=== PATIENT | male | born 1970 | race African-American/Black ===

== ENCOUNTER 2018-05-24 11:20 | Observation (INO) ==
[2018-05-24] MEDS ORDERED: *HR* FentaNYL (PF) 100 MCG/2 ML VIAL IVP ONE ×2 (11:38→13:07)
[2018-05-24] MEDS ORDERED: Ondansetron 4 MG/2 ML VIAL IVP ONE (11:38)
--- NOTE | 2018-05-24 11:41 | Emergency Department Note ---
START Narrative - START START: I examined this patient and my medical decision-making was reviewed with the Resident Physician. I agree with the documented findings, disposition and treatment plan as described except to the extent set forth below. 47-year-old male since emergency room for right-sided abdominal pain and right flank pain that started this morning. We did a quick bedside aortic ultrasound which does not show any enlargement or any abnormalities involving the aorta generally speaking. His right kidney at the either has probably cystic presentation versus severe hydronephrosis. He is acting like a kidney stone. We will check labs urinalysis and a CT abdomen and pelvis.
--- NOTE | 2018-05-24 11:44 | Emergency Department Note ---
Disposition Clinical Impression: Calculus of kidney Disposition: Admitted As Inpatient Condition: Good Forms: ED Satisfaction Letter, Work/School Release Time of Disposition: 14:08 General Adult HPI - General Chief complaint: ED Abdominal Pain Stated complaint: R flank pain Time Seen by Provider: 05/24/18 11:30 Nursing Notes Reviewed: Yes Vital Signs Reviewed: Yes - History of Present Illness HPI Narrative: Male patient began having right-sided abdominal/flank pain this morning. No history of kidney stones. Sudden onset. Intense pain to the right side. No nausea or vomiting. No fevers or chills. Radiates from his back around to his abdomen. Pain Scale: 10 - Related Data Home Medications Medication Instructions Recorded Confirmed No Known Home Drugs 05/24/18 05/24/18 Allergies Allergy/AdvReac Type Severity Reaction Status Date / Time No Known Allergies Allergy Verified 05/24/18 13:31 All systems ED: reviewed and negative except as stated. Constitutional: Denies: fever, chills ENT ED: Denies: congestion Cardiovascular: Denies: chest pain, palpitations, syncope Respiratory: Denies: cough, dyspnea Gastrointestinal: Reports: abdominal pain. Denies: nausea, vomiting, diarrhea, hematemesis, melena, hematochezia Genitourinary: Denies: urgency, dysuria, frequency, hematuria Musculoskeletal: Reports: back pain (Right-sided). Denies: neck pain Past Medical History - Past Medical History Attestation: Yes The following information was validated with the patient. Source: patient Medical history: Reports: no medical history Surgical history: Reports: no surgical history Psychiatric history: Reports: no psych history - Social History Smoking Status: Never smoker Smokeless Tobacco Status: No Alcohol use: Reports: none Drug use: Reports: none Physical Exam - General Limitations: no limitations General appearance: alert, in distress (Comparison significant pain. Writhing around. Frequently standing up trying to get comfortable.) - Eye Eye exam: Present: normal appearance, PERRL, EOMI - ENT ENT exam: normal exam, normal oropharynx, mucous membranes moist - Neck Neck exam: Present: normal inspection, full ROM, trachea midline - Chest Chest inspection: Present: normal inspection - Respiratory Respiratory exam: Absent: respiratory distress, accessory muscle use - Cardiovascular Cardiovascular exam: Present: regular rate, normal rhythm - Abdominal Exam Abdominal exam: Present: soft, tenderness (To right flank area.). Absent: distention, guarding, rebound, rigidity, organomegaly, Valdovinos's sign, Rovsing's sign, tenderness at McBurney's Point - Extremities Exam Extremities exam: Present: normal inspection, full ROM, normal capillary refill. Absent: tenderness, pedal edema - Back Exam Back exam: Present: normal inspection, CVA tenderness (R) - Neurological Exam Neurological exam: Present: alert, oriented X3 - Psychiatric Psychiatric exam: Present: anxious - Skin Skin exam: Present: warm, dry, intact, normal color. Absent: rash, cyanosis, diaphoresis Course Course Narrative: Male patient presenting to emergency department stating that he woke up this morning with right-sided flank pain. States it radiates from his back around to his groin. Never had pain like this before. He is hypertensive and writhing in bed at this time. We did perform an emergent bedside ultrasound that showed no signs of aortic dissection at this time. He states he has no medical history. He did have some type of his surgery for an abscess in his right lower quadrant that he cannot remember what it was from. He denies any trouble urinating. He denies any blood in his urine. No history of kidney stones. Her form a CT of patient's abdomen at this time. We will support him with pain medication and a basic lab workup. Patient does have right-sided flank pain. No swelling to his extremities. His mucosal membrane as moist. His abdomen is soft and nonrigid. He does report tenderness however does not grimace whenever I palpate his right upper quadrant. States that the pain is deeper and comes around from the side. No suprapubic tenderness. No masses noted. - Reevaluation(s) Reevaluation #1: Patient does have some right-sided ureteral stones. We did discuss this patient with Dr. Copeland. He is requesting that the Pt NOT receive Toradol. We will admit patient to the hospital for pain management. We will give him some Dilaudid at this time. He states that he is more comfortable while laying on his stomach. He is hypertensive however I do believe this is secondary to the pain. No history of hypertension. No chest pain or shortness of breath. Patient is agreeable to be admitted to the hospital. Patient's Lopressor responded appropriately to pain management. Does have LVH strain on EKG. - Consultations Consultation #1: I Spoke with Dr. Bell in attempt to admit the patient. He is requesting that the patient's blood pressure be lower before he admits to the floor. Time: 13:32 Consultation #2: Dr Bell accepted Pt in stable condition. Time: 14:08 Vital Signs Temperature 97.7 F 05/24/18 11:22 Pulse Rate 64 05/24/18 11:22 Respiratory Rate 22 05/24/18 11:22 Blood Pressure 235/125 05/24/18 11:22 O2 Sat by Pulse Oximetry 99 05/24/18 11:22 Temperature 97.7 F 05/24/18 11:36 Pulse Rate 62 05/24/18 13:51 Respiratory Rate 22 05/24/18 11:36 Blood Pressure 155/94 05/24/18 13:51 O2 Sat by Pulse Oximetry 96 05/24/18 13:51 Oxygen Delivery Oxygen Delivery Room Air Procedures - Ultrasound-Other Narrative: Bedside ultrasound performed by me supervised by Dr. Simon Spear patient's abdominal aorta showed no signs of dissection. Normal caliber. We also performed a right renal ultrasound. This shows a possible polycystic kidney. The other alternative diagnosis could be hydronephrosis. We also performed a right upper quadrant abdominal ultrasound that showed a normal caliber gallbladder. With normal wall and normal common bile duct. No stones. Medical Decision Making - Medical Records Medical records reviewed: Yes I reviewed the patient's medical records. - Lab Data Lab results reviewed: Yes I reviewed the patient's lab results. Result diagrams: 05/24/18 11:55 05/24/18 11:55 Lab Results 05/24/18 05/24/18 05/24/18 Range/Units 11:47 11:55 11:55 WBC 11.9 H (4.3-11.1) K/mcL RBC 6.11 H (4.19-5.50) M/mcL Hgb 12.7 L (12.9-16.9) g/dL Hct 40.8 (37.5-50.1) % MCV 66.8 L (83.0-100.0) fL MCH 20.8 L (28.0-33.3) pg MCHC 31.1 L (31.6-35.5) g/dL RDW 16.3 H (11.5-14.5) % Plt Count 187 (140-400) K/mcL MPV 11.1 (9.4-12.4) fL Immature Gran % 0.4 (0-4) % Seg Neutrophils % 67.5 % Lymphocytes % 19.6 % Monocytes % 8.1 % Eosinophils % 4.1 % Basophils % 0.3 % Neutrophils # 8.0 (1.6-8.9) K/mcL Lymphocytes # 2.3 (0.6-4.6) K/mcL Monocytes # 1.0 (0.0-1.3) K/mcL Eosinophils # 0.5 (0.0-0.6) K/mcL Basophils # 0.0 (0.0-0.2) K/mcL Platelet Estimate Normal (Normal) Immature Plt Fraction 5.5 (1.1-6.1) % Hypochromasia Present A (Not Present) Poikilocytosis 2+ A (Not Present) Microcytosis Present A (Not Present) Sodium 135 L (136-145) mEq/L Potassium 3.1 L (3.5-5.1) mEq/L Chloride 106 (98-107) mEq/L Carbon Dioxide 21 L (23-29) mEq/L BUN 23 H (6-20) mg/dL Creatinine 1.52 H (0.70-1.30) mg/dL Est GFR ( Amer) > 60 (> 60) Est GFR (Non-Af Amer) 50 L (> 60) BUN/Creatinine Ratio 15 (6-26) Glucose 118 H (70-105) mg/dL Calculated Osmolality 285 (280-300) Calcium 9.3 (8.6-10.3) mg/dL Troponin I < 0.03 (< 0.04) ng/mL Urine Color Yellow (Yellow) Urine Clarity Clear (Clear) Urine pH 6.0 (5.0-8.0) pH Units Ur Specific Miranda 1.016 (1.010-1.025) Urine Protein 30 H (Neg-Trace) mg/dL Urine Glucose (UA) Normal (Normal) mg/dL Urine Ketones Negative (Negative) mg/dL Urine Blood Large H (Negative) Urine Nitrite Negative (Negative) Urine Bilirubin Negative (Negative) Urine Urobilinogen Normal (Normal) mg/dL Ur Leukocyte Esterase Negative (Negative) Urine Microscopic RBC TNTC H (0-3) per hpf Urine Microscopic WBC 0-3 (0-3) per hpf Ur Squamous Epith Cells Few (None-Few) per lpf Urine Bacteria None Seen (None-Few) per hpf Hyaline Casts None Seen (None-Few) per lpf Ur Culture Indicated? NO (NO) - Radiology Data Radiology results reviewed: Yes I reviewed the patient's radiology results. Abdomen/Pelvis CT 05/24/18 11:38 IMPRESSION: 1. There are 2 small stones in the distal right ureter, at the right UVJ, measuring 3 mm and 1 mm respectively. This results in severe right-sided hydronephrosis. 2. Polycystic renal and liver disease. 3. Cholelithiasis. 4. Small periumbilical hernia, containing fat and a short segment of small bowel. No evidence of obstruction or incarceration. D/ / 05/24/2018 12:28:07 Cj Flanagan MD / jessica Interpreting Provider: Cj Flanagan MD - EKG Data EKG #1 EKG attestation: Yes I reviewed and interpreted this EKG. EKG results narrative: Sinus bradycardia at a rate of 56. MI interval is 183. QRS duration is 80. QT is 397. QTC is 388. Patient does have findings consistent with left ventricular strain. He has some J-point elevation in lead V2 V3 and V4. We have no previous EKG to compare to. No signs of acute ischemia.
[2018-05-24 12:06] LABS: Bilirubin,Urine Negative (Negative); Blood,Urine Large (Negative); Clarity,Urine Clear (Clear); Color,Urine Yellow (Yellow); Glucose,Urine (UA) Normal (Normal); Ketones,Urine Negative (Negative); Leukocyte Esterase,Urine Negative (Negative); Nitrite,Urine Negative (Negative); Protein,Urine 30 mg/dL (Neg-Trace); Specific Gravity,Urine 1.016 (1.010-1.025); Urobilinogen,Urine Normal (Normal)
[2018-05-24 12:07] LABS: Immature Granulocytes % 0.4 % (0-4)
[2018-05-24 12:08] LABS: Bacteria,Urine None Seen per hpf (None-Few); Hyaline Casts,Urine None Seen per lpf (None-Few); RBC,Urine TNTC per hpf (0-3); Squamous Epithelial Cell,Urine Few per lpf (None-Few); WBC,Urine 0-3 per hpf (0-3)
[2018-05-24 12:09] LABS: Basophils % 0.3 %; Eosinophils # 0.5 K/mcL (0.0-0.6); Eosinophils % 4.1 %; Hematocrit 40.8 % (37.5-50.1); Hemoglobin 12.7 g/dL (12.9-16.9); Immature Platelets 5.5 % (1.1-6.1); Lymphocytes # 2.3 K/mcL (0.6-4.6); Lymphocytes % 19.6 %; Mean Corpuscular HGB Conc 31.1 g/dL (31.6-35.5); Mean Corpuscular Hemoglobin 20.8 pg (28.0-33.3); Mean Corpuscular Volume 66.8 fL (83.0-100.0); Mean Platelet Volume 11.1 fL (9.4-12.4); Monocytes % 8.1 %; Platelet Count 187 K/mcL (140-400); Red Blood Count 6.11 M/mcL (4.19-5.50); Red Cell Distribution Width 16.3 % (11.5-14.5); Segmented Neutrophils % 67.5 %
[2018-05-24 12:26] LABS: BUN/Creatinine Ratio 15 (6-26); Blood Urea Nitrogen 23 mg/dL (6-20); Calcium 9.3 mg/dL (8.6-10.3); Carbon Dioxide 21 mEq/L (23-29); Chloride 106 mEq/L (98-107); Glucose 118 mg/dL (70-105); Osmolality,Calculated 285 (280-300); Potassium 3.1 mEq/L (3.5-5.1); Sodium 135 mEq/L (136-145); eGFR For African Americans > 60 (> 60); eGFR For Non-African Americans 50 (> 60)
[2018-05-24 12:49] LABS: Platelet Estimate Normal (Normal)
[2018-05-24 12:50] LABS: Microcytosis Present (Not Present)
[2018-05-24 12:51] LABS: Hypochromasia Present (Not Present); Poikilocytosis 2+ (Not Present)
[2018-05-24] MEDS ORDERED: *HR* HYDROmorphone (PF) 1 MG/ML SYRINGE IVP ONE (12:59)
[2018-05-24 13:32] LABS: Troponin I < 0.03 ng/mL (< 0.04)
[2018-05-24] MEDS: *HR* HYDROmorphone (PF) 1 MG/ML SYRINGE IVP PRN ×2 (17:54→21:55)
--- NOTE | 2018-05-24 18:01 | Internal Med History&Physical ---
Date of Encounter: 05/26/18 Time of Encounter: 16:00 Internal Medicine - H&P: HPI Chief complaint: Right flank pain Admitted From: Home Plans for Post Hospital Care: Home History of present illness: Patient is a 47-year-old male with no significant past medical history who presented to the ER on 05/24/18 due to right flank pain. She reported waking up this morning with right-sided flank pain which she describes a sharp which was constant with no relieving or provoking factors. Patient denies any radiation of his pain. He does report of associated symptoms of nausea/vomiting but denies hematuria or dysuria. Patient decided to come to the ER for evaluation. In the ER, CT of the abdomen/pelvis was done which showed 2 small stones in the distal right ureter at the right UVJ with severe right-sided hydronephrosis. Patient was also found to have polycystic renal and liver disease in addition to cholelithiasis. In addition patient was also found to have acute kidney injury. Urology was consulted from the emergency room. Patient will be admitted to medical surgical floor for management of nephrolithiasis. Past Med Surg Social Fam HX - Past Medical History Medical history: no medical history Psychiatric history: no psych history - Past Surgical History Surgical History: no surgical history - Social History Smoking Status: Never smoker Smokeless Tobacco Status: No Alcohol use: none Drug use: none - Family History Mother History Unknown: Yes Living Status: Father History Unknown: Yes Living Status: Internal Medicine - H&P: Meds No Known Home Drugs 05/24/18 [History] 3 Allergy/AdvReac Type Severity Reaction Status Date / Time No Known Allergies Allergy Verified 05/24/18 13:31 All Systems PM: A 10-system review of systems was performed and is negative for pertinent findings except as documented above in the HPI. - Constitutional Vitals: Temp Pulse Resp BP Pulse Ox 97.4 F L 60 18 164/92 98 05/24/18 15:26 05/24/18 15:26 05/24/18 15:26 05/24/18 17:30 05/24/18 15:26 General appearance: Present: A&O X 3, no acute distress - Eye Eye exam: Present: normal appearance - ENT ENT exam: Present: mucous membranes moist - Respiratory Respiratory exam: Present: CTAB. Absent: accessory muscle use, rales, rhonchi, wheezes - Cardiovascular Cardiovascular exam: Present: RRR, +S1, +S2. Absent: diastolic murmur, gallop, rubs, systolic murmur - GI/Abdominal GI/Abdominal exam: Present: normal bowel sounds, soft, no peritoneal signs. Absent: distended, tenderness - Extremities Exam Extremities exam: Absent: pedal edema - Neurological Exam Neurological exam: Present: oriented X3 - Psychiatric Psychiatric exam: Absent: normal mood - Skin Skin exam: Present: normal color Internal Med - H&P Results - Labs CBC & Chem 7: 05/26/18 06:01 05/26/18 06:01 - Assessment and plan (1) Calculus of kidney Current Visit: Yes Status: Acute Assessment and plan: In the ER, CT of the abdomen/pelvis was done which showed 2 small stones in the distal right ureter at the right UVJ with severe right-sided hydronephrosis. Will continue pain control with IV Dilaudid; one dose of Flomax was given in the ER Urology consult and appreciate recommendations (2) Acute renal failure (ARF) Current Visit: Yes Status: Acute Assessment and plan: Creatinine 1.52 admission; baseline unknown Patient was also found to have polycystic renal disease Will give gentle IV fluids Qualifiers: Acute renal failure type: unspecified Qualified Code(s): N17.9 - Acute kidney failure, unspecified (3) Hypokalemia Current Visit: Yes Status: Acute Assessment and plan: Patient with a potassium of 3.1 on admission Will give potassium supplementation (4) DVT prophylaxis Current Visit: Yes Status: Acute Assessment and plan: Patient is low risk and able to ambulate - Time Spent With Patient Total time spent is greater than 50% in coordination of care (as documented) at patient's floor/unit and/or counseling patient:
[2018-05-24] MEDS ORDERED: Naloxone 0.4 MG/ML INJ IVP PRN (18:11)
[2018-05-24] MEDS: 0.9 % Sodium Chloride 1,000 ML IVC SCH (18:46)
[2018-05-24] MEDS ORDERED: *HR* Promethazine 25 MG/ML VIAL IVP PRN (21:44)
[2018-05-24] MEDS ORDERED: Ondansetron 4 MG/2 ML VIAL IVP PRN (21:44)
[2018-05-25 01:23] LABS: Basophils % 0.1 %; Immature Granulocytes % 0.4 % (0-4)
[2018-05-25 01:25] LABS: Eosinophils # 0.1 K/mcL (0.0-0.6); Eosinophils % 1.3 %; Hematocrit 40.5 % (37.5-50.1); Hemoglobin 12.7 g/dL (12.9-16.9); Immature Platelets 6.6 % (1.1-6.1); Lymphocytes # 1.5 K/mcL (0.6-4.6); Lymphocytes % 14.1 %; Mean Corpuscular HGB Conc 31.4 g/dL (31.6-35.5); Mean Corpuscular Volume 66.8 fL (83.0-100.0); Monocytes # 0.9 K/mcL (0.0-1.3); Monocytes % 8.9 %; Neutrophils # 7.8 K/mcL (1.6-8.9); Platelet Count 167 K/mcL (140-400); Red Blood Count 6.06 M/mcL (4.19-5.50); Red Cell Distribution Width 15.9 % (11.5-14.5); Segmented Neutrophils % 75.2 %
[2018-05-25 01:42] LABS: Calcium 8.5 mg/dL (8.6-10.3); Potassium 3.4 mEq/L (3.5-5.1)
[2018-05-25 01:48] LABS: Hypochromasia Present (Not Present); Microcytosis Present (Not Present); Platelet Estimate Normal (Normal)
--- NOTE | 2018-05-25 06:47 | Urology - Consult Note ---
Date of Encounter: 05/25/18 Time of Encounter: 06:45 - Assessment and Plan (1) Ureteral stone with hydronephrosis Current Visit: Yes Status: Acute Assessment and plan: I reviewed the CT scan and agree with the findings. we discussed 2 options. proceed with a stone extraction today vs trial of passage which would be done as an outpatient. pt elects for a ureteroscopic stone extraction. will proceed today. no indication the patient has passed the stone. we discussed the risk of the procedure including UTI, bleeding, stricture, perforation, stent discomfort. Urology CN:HPI Consult date: 05/25/18 Reason for consult Urology: Hydronephrosis History of present illness: 47 yo admitted with a 3 mm distal ureteral stone, intractable pain and HTN. feels better but still hurting. has not passed stone and all urine has been strained. no hx of stones. Past Med Surg Social Fam HX - Past Medical History Medical history: no medical history Psychiatric history: no psych history - Past Surgical History Surgical History: no surgical history - Social History Smoking Status: Never smoker Smokeless Tobacco Status: No Alcohol use: none Drug use: none - Family History Mother History Unknown: Yes Living Status: Father History Unknown: Yes Living Status: Medications and Allergies No Known Home Drugs 05/24/18 [History] 3 Allergy/AdvReac Type Severity Reaction Status Date / Time No Known Allergies Allergy Verified 05/24/18 13:31 Review of Systems - Constitutional no chills, no fever(s) - EENT Nose, mouth and throat: no dizziness - Cardiovascular no chest pain - Respiratory no cough - Gastrointestinal abdominal pain, nausea - Genitourinary flank pain - Musculoskeletal back pain - Integumentary no erythema - Neurological no confusion - Psychiatric no anxiety - Hematologic/Lymphatic no easy bleeding - Allergic/Immunologic no throat swelling Exam Initial Vital Signs Temp Pulse Resp BP Pulse Ox 97.7 F 64 22 235/125 99 05/24/18 11:22 05/24/18 11:22 05/24/18 11:22 05/24/18 11:22 05/24/18 11:22 - General physical appearance Present: no distress - Eyes Present: PERRL, conjunctiva is clear - ENT Present: normal nares, no hearing loss - Neck Present: no masses - Respiratory Present: normal respiratory effort - Cardiovascular Cardiovascular exam IM: RRR - Abdomen Abdomen: Present: soft. Absent: masses - Integumentary Present: no rash - Neurologic Present: normal coordination. Absent: disoriented, confused - Musculoskeletal Present: normal gait Urology Results - Labs 05/25/18 01:07 05/25/18 01:07 Abnormal lab results RBC 6.06 M/mcL (4.19-5.50) H 05/25/18 01:07 Hgb 12.7 g/dL (12.9-16.9) L 05/25/18 01:07 MCV 66.8 fL (83.0-100.0) L 05/25/18 01:07 MCH 21.0 pg (28.0-33.3) L 05/25/18 01:07 MCHC 31.4 g/dL (31.6-35.5) L 05/25/18 01:07 RDW 15.9 % (11.5-14.5) H 05/25/18 01:07 Immature Plt Fraction 6.6 % (1.1-6.1) H 05/25/18 01:07 Hypochromasia Present (Not Present) A 05/25/18 01:07 Poikilocytosis 2+ (Not Present) A 05/24/18 11:55 Microcytosis Present (Not Present) A 05/25/18 01:07 Sodium 134 mEq/L (136-145) L 05/25/18 01:07 Potassium 3.4 mEq/L (3.5-5.1) L 05/25/18 01:07 Creatinine 1.56 mg/dL (0.70-1.30) H 05/25/18 01:07 Est GFR ( Amer) 59 (> 60) L 05/25/18 01:07 Est GFR (Non-Af Amer) 48 (> 60) L 05/25/18 01:07 Glucose 122 mg/dL (70-105) H 05/25/18 01:07 Calcium 8.5 mg/dL (8.6-10.3) L 05/25/18 01:07 Urine Protein 30 mg/dL (Neg-Trace) H 05/24/18 11:47 Urine Blood Large (Negative) H 05/24/18 11:47 Urine Microscopic RBC TNTC per hpf (0-3) H 05/24/18 11:47 Diabetes panel 05/25/18 Range/Units 01:07 Sodium 134 L (136-145) mEq/L Potassium 3.4 L (3.5-5.1) mEq/L Chloride 103 (98-107) mEq/L Carbon Dioxide 25 (23-29) mEq/L BUN 20 (6-20) mg/dL Creatinine 1.56 H (0.70-1.30) mg/dL Glucose 122 H (70-105) mg/dL Calcium 8.5 L (8.6-10.3) mg/dL Calcium panel 05/25/18 Range/Units 01:07 Calcium 8.5 L (8.6-10.3) mg/dL Pituitary panel 05/25/18 Range/Units 01:07 Sodium 134 L (136-145) mEq/L Potassium 3.4 L (3.5-5.1) mEq/L Chloride 103 (98-107) mEq/L Carbon Dioxide 25 (23-29) mEq/L BUN 20 (6-20) mg/dL Creatinine 1.56 H (0.70-1.30) mg/dL Glucose 122 H (70-105) mg/dL Calcium 8.5 L (8.6-10.3) mg/dL Adrenal panel 05/25/18 Range/Units 01:07 Sodium 134 L (136-145) mEq/L Potassium 3.4 L (3.5-5.1) mEq/L Chloride 103 (98-107) mEq/L Carbon Dioxide 25 (23-29) mEq/L BUN 20 (6-20) mg/dL Creatinine 1.56 H (0.70-1.30) mg/dL Glucose 122 H (70-105) mg/dL Calcium 8.5 L (8.6-10.3) mg/dL All other labs normal. Consult Discharge Plan - Plan Referrals: NONE,PCP [Primary Care Provider] -
[2018-05-25] MEDS ORDERED: cefTRIAXone 1,000 MG in Water for inj. (sterile) 20 ML 10 ML IVP ONE (06:49)
[2018-05-25] MEDS: 0.9 % Sodium Chloride 1,000 ML IVC SCH (07:47)
[2018-05-25] MEDS: *HR* HYDROmorphone (PF) 1 MG/ML SYRINGE IVP PRN (07:47)
[2018-05-25] MEDS ORDERED: *HR* FentaNYL (PF) 100 MCG/2 ML VIAL ONE ×2 (07:57→09:42)
[2018-05-25] MEDS ORDERED: *HR* Midazolam HCl 2 MG/2 ML VIAL ONE (07:58)
[2018-05-25] MEDS ORDERED: *HR* Propofol 200 MG/20 ML VIAL IVP ONE (07:58)
[2018-05-25] MEDS ORDERED: Dexamethasone 4 MG/ML VIAL ONE (08:01)
[2018-05-25] MEDS ORDERED: Ondansetron 4 MG/2 ML VIAL ONE (08:01)
[2018-05-25] MEDS ORDERED: Lidocaine -MPF 2% 2 ML VIAL ONE (08:01)
--- NOTE | 2018-05-25 08:04 | Anesthesia Evaluation PreOp ---
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: Denies Any Significant HX Other Medical History: Denies Any Significant HX Anesthesia History: No Prior Anesthetic Complications, Past Anesthesia Alcohol Use: occasionally Drug use: none Medications and Allergies No Known Home Drugs 05/24/18 [History] 3 Allergy/AdvReac Type Severity Reaction Status Date / Time No Known Allergies Allergy Verified 05/24/18 13:31 - Meds/Allergy Pre-op Review Medications Reviewed: Yes Allergies Reviewed: Yes Beta Blockers on Current Med List: No Anesthesia Results - Labs 05/25/18 01:07 05/25/18 01:07 Anesthesia Exam Vital Signs/O2 Sat, Most Current Temp Pulse Resp BP Pulse Ox 99.7 F H 95 17 158/84 100 05/25/18 07:21 05/25/18 07:21 05/25/18 07:21 05/25/18 07:21 05/25/18 07:21 Height: 5'5''/1.65m Weight: 169 lbs/76.7 kg NPO (# of Hours): 8 Pain Scale: 2 (right flank) Pain Scale Used: Numeric (1 - 10) - HEENT Pupil (Motor): EOMI Mallampati: II Teeth: Normal Oral Opening: Greater than 3 - 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
[2018-05-25] MEDS ORDERED: Potassium Chloride 20 MEQ, Lidocaine 1% 2 ML in D5% in Water 250 ML IVPB ONE ×2 (08:17→10:38)
[2018-05-25] MEDS ORDERED: Isovue-300 50 ML VIAL IVP ONE (09:44)
[2018-05-25] MEDS ORDERED: *HR* Promethazine 25 MG/ML VIAL IVP PRN ×3 (09:54→10:38)
[2018-05-25] MEDS ORDERED: *HR* OxyCODONE Immed Rel 5 MG TABLET PO PRN ×2 (09:54→10:38)
[2018-05-25] MEDS ORDERED: *HR* FentaNYL (PF) 100 MCG/2 ML VIAL IVP PRN (09:54)
--- NOTE | 2018-05-25 10:32 | Operative Note ---
Date of procedure: 05/25/18 Pre-op diagnosis: right distal ureteral stones Post-op diagnosis: same Procedure: Right ureteroscopic stone extraction. Right ureteral stent placement. Anesthesia: GETA Surgeon: Jw Copeland Was there an bookkeeping assistant present: No Estimated blood loss (cc): 0 Specimen: Right ureteral stone Condition: stable Disposition: PACU Procedure in Detail: PROCEDURE IN DETAIL: Patient was taken back to the operating room, positioned supine on the operating table. Anesthesia was applied without complication. They were moved into dorsal lithotomy. Careful attention was maintained to cushion all pressure points for patient's safety. They were prepped and draped in sterile fashion. Time-out was performed with the proper patient and procedure. A 21-Ch[place] rigid cystoscope was inserted into the bladder without difficulty. Systematic examination of bladder revealed no abnormalities. The ureteral orifice visualized but quite edematous. I initially had significant difficulty cannulating the right ureteral orifice or passing a zip wire. I eventually had to proceed with the semirigid ureteroscope and passed this into the distal ureter under direct vision. I did encounter both stones that were quite impacted but was able to basket extract using a 1.9 tip less basket. A zip wire had been passed and I eventually placed a 4.8 x 26 ureteral stent but left the dangle string attached. Once the stones were extracted were sent for analysis and the bladder was emptied.
--- NOTE | 2018-05-25 10:33 | Event Note ---
Date of Encounter: 05/25/18 Time of Encounter: 10:32 Patient can be discharged from urology standpoint today. This obviously depends on blood pressure and pain control. The stent needs to stay in place at least 3 days. The patient can remove the stent at home by pulling on the string. Otherwise he can follow with the urology office next week. I stressed the importance of getting a primary care physician as an outpatient to better evaluate his high blood pressure, polycystic kidneys, etc.
[2018-05-25] MEDS ORDERED: Naloxone 0.4 MG/ML INJ IVP PRN (10:38)
[2018-05-25] MEDS ORDERED: Ondansetron 4 MG/2 ML VIAL IVP PRN (10:38)
[2018-05-25] MEDS ORDERED: 0.9 % Sodium Chloride 1,000 ML IVC SCH (10:38)
--- NOTE | 2018-05-25 11:10 | Anesthesia Evaluation Post Op ---
Date of Encounter: 05/25/18 Time of Encounter: 11:09 - Vital Signs Vital Signs: Vital Signs/O2 Sat, Most Current Temp Pulse Resp BP Pulse Ox 99.0 F 96 18 153/90 95 05/25/18 11:02 05/25/18 11:02 05/25/18 11:02 05/25/18 11:02 05/25/18 11:02 - Lungs Lungs: Clear Ascult./Percussion - Airway Airway: Non-obstructed - Cardiovascular Regular Rate - Mental Status Mental Status: Alert & Oriented, Answers Appropriately - Pain Pain Scale: 0 Pain Scale used: Numeric (1 - 10) - Nausea Vomiting Nausea Vomiting: Not Present - Hydration Hydration: Ice chips, Has not voided - Discharge PostOp Status: Transfer Patient to floor
[2018-05-25] MEDS: *HR* OxyCODONE/APAP 5/325 TABLET PO PRN (12:36)
[2018-05-25] MEDS ORDERED: amLODIPine 5 MG TABLET PO SCH (16:15)
--- NOTE | 2018-05-25 16:55 | Internal Med Progress Note ---
Date of Encounter: 05/25/18 Time of Encounter: 16:53 - Assessment and plan (1) Calculus of kidney Current Visit: Yes Status: Acute Assessment and plan: Obstructive uropathy. CT of the abdomen/pelvis was done which showed 2 small stones in the distal right ureter at the right UVJ with severe right-sided hydronephrosis. Initially conservative management was restarted and consulted urologist who did perform or right ureteroscopic stone removal with right ureter stent placement and okay to discharge from urology standpoint. He did advised to remove the stent in 3 days and follow with urologist in 1 week. (2) Acute renal failure (ARF) Current Visit: Yes Status: Acute Assessment and plan: Due to obstructive uropathy. Trending of creatinine level. Will repeat BMP tomorrow morning. Continue IV fluid 75 mL per hour and encourage the by mouth oral diet. Renal ultrasound ordered as there is incidental finding of polycystic renal disease on CT scan. Patient needs to be seen by printed circuit board panels trimmer that can be done on OPD basis if creatinine level trending down. Qualifiers: Acute renal failure type: unspecified Qualified Code(s): N17.9 - Acute kidney failure, unspecified (3) Hypokalemia Current Visit: Yes Status: Acute Assessment and plan: Patient with a potassium of 3.1 on admission. Monitoring and replacement. (4) Liver cyst Current Visit: Yes Status: Acute Assessment and plan: And cholelithiasis on Incidental finding on CT abdomen. Ultrasound gallbladder and liver advised that can be done on OPD basis as patient is asymptomatic. (5) Heart murmur Current Visit: Yes Status: Acute Assessment and plan: Incidental finding on clinical examination. Patient is asymptomatic. Needs evaluation by PCP. Echocardiogram can be done on OPD basis. No family history of sudden cardiac (6) Polycystic kidney disease Current Visit: Yes Status: Acute Assessment and plan: Incidental finding on CT scan. Renal ultrasound ordered by neurologist. Patient needs to get established with printed circuit board panels trimmer on OPD basis. (7) DVT prophylaxis Current Visit: Yes Status: Acute - Time Spent With Patient Total time spent is greater than 50% in coordination of care (as documented) at patient's floor/unit and/or counseling patient: 25 - 35 minutes - Subjective Interval history: Patient resting comfortably. at bedside. Patient has undergone rt ureteroscopic stone removal and right ureter stent placement today. Hematuria noticed. Patient denies any flank pain. Blood pressure moderately elevated. Review the lab with pending of creatinine level. - Constitutional Vitals: Temp Pulse Resp BP Pulse Ox 98.1 F 88 14 145/87 96 05/25/18 13:40 05/25/18 14:40 05/25/18 14:40 05/25/18 14:40 05/25/18 14:40 General appearance: Present: A&O X 3, no acute distress Exam: General appearance: No acute distress, A&O X 3 Head exam: Atraumatic Eye exam: EOMI, PERRLA ENT exam: Moist oral mucosa Neck nontender, supple Respiratory exam: Clear to auscultation bilaterally Cardiovascular exam: Regular rate and rhythm, 2 x 6 systolic murmur Abdominal exam: Soft, nontender, nondistended, positive bowel sounds Extremities exam: No calf tenderness, no pedal edema Present: Skin-no rash, warm, dry, intact Neurological exam: Alert, awake, oriented 3, CN II-XII intact, no focal deficits. No facial droop. Normal speech. Internal Medicine: Result - Labs CBC & Chem 7: 05/25/18 01:07 05/25/18 01:07 Labs: Short CBC 05/25/18 Range/Units 01:07 WBC 10.4 (4.3-11.1) K/mcL Hgb 12.7 L (12.9-16.9) g/dL Hct 40.5 (37.5-50.1) % Plt Count 167 (140-400) K/mcL Neutrophils # 7.8 (1.6-8.9) K/mcL BMP 05/25/18 01:07 Sodium 134 L Potassium 3.4 L Chloride 103 Carbon Dioxide 25 BUN 20 Creatinine 1.56 H Glucose 122 H Calcium 8.5 L - Impressions Impressions Fluoroscopy 05/25/18 10:18 IMPRESSION: Intraprocedural fluoroscopic spot images as above. See separate procedure report for more information. D/ / Yandel Hdez MD / Yandel Hdez MD Interpreting Provider: Yandel Hdez MD X-Ray 05/25/18 10:18 IMPRESSION: Intraprocedural fluoroscopic spot images as above. See separate procedure report for more information. D/ / Yandel Hdez MD / Yandel Hdez MD Interpreting Provider: Yandel Hdez MD - VTE Reasons for not Prescribing Prophylaxis: Treatment not Indicated - Low risk for VTE Consult Discharge Plan - Plan Referrals: NONE,PCP [Primary Care Provider] -
[2018-05-26 06:27] LABS: Basophils % 0.2 %; Eosinophils # 0.3 K/mcL (0.0-0.6); Eosinophils % 2.5 %; Hematocrit 39.7 % (37.5-50.1); Hemoglobin 12.2 g/dL (12.9-16.9); Immature Granulocytes % 0.4 % (0-4); Lymphocytes # 3.1 K/mcL (0.6-4.6); Lymphocytes % 25.7 %; Mean Corpuscular HGB Conc 30.7 g/dL (31.6-35.5); Mean Corpuscular Hemoglobin 20.3 pg (28.0-33.3); Mean Corpuscular Volume 66.2 fL (83.0-100.0); Mean Platelet Volume 11.3 fL (9.4-12.4); Monocytes # 1.1 K/mcL (0.0-1.3); Monocytes % 9.1 %; Neutrophils # 7.5 K/mcL (1.6-8.9); Platelet Count 194 K/mcL (140-400); Red Cell Distribution Width 17.9 % (11.5-14.5); Segmented Neutrophils % 62.1 %
--- NOTE | 2018-05-26 06:46 | Urology Progress Note ---
Date of Encounter: 05/26/18 Time of Encounter: 06:45 - Assessment and Plan (1) Ureteral stone with hydronephrosis Current Visit: Yes Status: Resolved Assessment and plan: Okay with discharge when hospitalist evaluation of high blood pressure and heart complete. Stent can be removed on Saturday Progress Note Narrative: expected stent discomfort. He feels significant less pain compared to yesterday Objective Initial Vital Signs Temp Pulse Resp BP Pulse Ox 97.7 F 64 22 235/125 99 05/24/18 11:22 05/24/18 11:22 05/24/18 11:22 05/24/18 11:22 05/24/18 11:22 - General physical appearance Present: no distress - Labs 05/26/18 06:01 05/25/18 01:07 - VTE Reasons for not Prescribing Prophylaxis: Treatment not Indicated - Low risk for VTE Consult Discharge Plan - Plan Referrals: NONE,PCP [Primary Care Provider] -
[2018-05-26 06:48] LABS: BUN/Creatinine Ratio 19 (6-26); Blood Urea Nitrogen 24 mg/dL (6-20); Calcium 8.5 mg/dL (8.6-10.3); Carbon Dioxide 23 mEq/L (23-29); Chloride 111 mEq/L (98-107); Glucose 119 mg/dL (70-105); Osmolality,Calculated 293 (280-300); Potassium 3.8 mEq/L (3.5-5.1); Sodium 139 mEq/L (136-145); eGFR For African Americans > 60 (> 60); eGFR For Non-African Americans > 60 (> 60)
[2018-05-26 07:00] LABS: Hypochromasia Present (Not Present); Microcytosis Present (Not Present); Platelet Estimate Normal (Normal)
--- NOTE | 2018-05-26 07:08 | Electrocardiograph Report ---
[address] [place], [place] [address] Test Date: 2018-05-24 Pat Name: Simon Dean Department: 103 Room: 3A44 Gender: M Auxiliary Engineer: TMJuana : 1970 Requested By: Simon Spear Order Number: [id number] Reading MD: Keaton Lamar Measurements Intervals [place] Rate: 56 P: 30 MS: 183 QRS: -5 QRSD: 80 T: -46 QT: 397 QTc: 388 Interpretive Statements SINUS BRADYCARDIA VOLTAGE CRITERIA FOR LVH ANTEROSEPTAL CHANGES CONCERNING FOR CT Electronically Signed On 05-26-2018 7:06:41 EDT by Keaton Lamar
[2018-05-26] MEDS: amLODIPine 5 MG TABLET PO SCH (09:48)
--- NOTE | 2018-05-26 10:53 | Nephrology Consult Note ---
Date of Encounter: 05/26/18 Time of Encounter: 10:49 Assessment and Plan (1) HATTIE (acute kidney injury) Current Visit: Yes Status: Acute HATTIE is most likely due to right renal stones. Retroperitoneal US ordered for this afternoon for PCKD. Urine output "good" per patient, he is voiding in bathroom not urinal. Scr 1.27 and GFR >60. Encouraged PO intake. (2) Polycystic kidney disease Current Visit: Yes Status: Acute (3) Ureteral stone with hydronephrosis Current Visit: Yes Status: Resolved Per urology. (4) Elevated blood pressure reading in office without diagnosis of hypertension Current Visit: Yes Status: Acute BP has been elevated this stay. 158/86 currrently. Patient's nurse is working on establishing patient with PCP and with those readings in office, can determine if he has true HTN. History of Present Illness - Reason for Consult Consult date: 05/26/18 Acute Kidney Injury - Chief Complaint RUQ pain - History of Present Illness Mr. Dean is a 46 year old male that presented to ED with RUQ pain. Was found to have 2 right sided kidney stones with hydronephrosis. Did have stent placed and is still in place, it can be removed Saturday by Urology progress note. No significant PMH. Denies any urinary symptoms at home before admission. HATTIE is likely due to kidney stones, is resolving. Past Med Surg Social Fam HX - Past Medical History Medical history: no medical history Psychiatric history: no psych history - Past Surgical History Surgical History: no surgical history - Social History Smoking Status: Never smoker Smokeless Tobacco Status: No Alcohol use: occasionally Drug use: none - Family History Mother History Unknown: Yes Living Status: Father History Unknown: Yes Living Status: Medications and Allergies No Known Home Drugs 05/24/18 [History] 3 Allergy/AdvReac Type Severity Reaction Status Date / Time No Known Allergies Allergy Verified 05/24/18 13:31 Review of Systems Constitutional: no anorexia, no chills, no fever(s) Cardiovascular: no chest pain, no dyspnea Gastrointestinal: abdominal pain, no change in bowel habits, no diarrhea, no nausea, no vomiting Exam - Vital Signs Vital signs: Initial Vital Signs Temp Pulse Resp BP Pulse Ox 97.7 F 64 22 235/125 99 05/24/18 11:22 05/24/18 11:22 05/24/18 11:22 05/24/18 11:22 05/24/18 11:22 Vital Signs - Last 8 Hours Temp Pulse Resp BP Pulse Ox 05/26/18 09:16 98.4 F 79 14 158/86 99 05/26/18 03:24 98.3 F 64 15 182/98 97 Intake and Output 05/25/18 05/26/18 05/26/18 23:59 07:59 15:59 Intake Total 250 / 250 0 / 0 120 / 120 Output Total 1100 / 1100 0 / 0 0 / 0 Balance -850 / -850 0 / 0 120 / 120 Intake: IV Fluids 250 / 250 KCl 20 MEQ Xylocaine 2 ML In 250 / 250 Dextrose 5% 250 ML @ 131 mls/hr IVPB ONCE ONE Rx#:[id number] Oral 0 / 0 0 / 0 120 / 120 Output: Urine 1100 / 1100 0 / 0 0 / 0 Other: Meal Breakfast Percent of Meal Consumed 100% Blood Glucose* 148 - General Appearance General appearance: well-developed, well-nourished, appears started age EENT: ATNC, hearing intact, vision intact Cardiology: no edema, regular rate, regular rhythm, normal S1, normal S2 Gastrointestinal: normoactive bowel sounds, no tenderness, no guarding Integumentary: no rash, warm and dry Neurologic: alert and oriented x3 Psychiatric: mood/affect appropriate, cooperative Results - Lab Results 05/26/18 06:01 05/26/18 06:01 Most recent lab results Calcium 8.5 mg/dL (8.6-10.3) L 05/26/18 06:01 Consult Discharge Plan - Plan Referrals: NONE,PCP [Primary Care Provider] -
--- NOTE | 2018-05-26 17:22 | Internal Med Progress Note ---
Date of Encounter: 05/26/18 Time of Encounter: 08:47 - Assessment and plan (1) HTN (hypertension) Current Visit: Yes Status: Acute Assessment and plan: Newly diagnosed hypertension. Patient never had any workup. Molder Trimmer was consulted due to the concern of newly diagnosed hypertension with newly diagnosed polycystic kidney disease with recent HATTIE though explanable obstructive uropathy. Patient does not have primary care physician at this point therefore want to get workup done soon. Started amlodipine and will continue to monitor blood pressure and possible discharge tomorrow after getting evaluation by opal polisher and better BP control. Qualifiers: Hypertension type: essential hypertension Qualified Code(s): I10 - Essential (primary) hypertension (2) Calculus of kidney Current Visit: Yes Status: Acute Assessment and plan: Obstructive uropathy. CT of the abdomen/pelvis was done which showed 2 small stones in the distal right ureter at the right UVJ with severe right-sided hydronephrosis. Initially conservative management was restarted and consulted urologist who did perform or right ureteroscopic stone removal with right ureter stent placement and okay to discharge from urology standpoint. He did advised to remove the stent in 3 days and follow with urologist in 1 week. (3) Acute renal failure (ARF) Current Visit: Yes Status: Acute Assessment and plan: Due to obstructive uropathy. Normal normal creatinine level. Stopped IV fluid and is started oral diet. Renal ultrasound ordered as there is incidental finding of polycystic renal disease on CT scan and consulted opal polisher. Renal ultrasound is still not done yet. Qualifiers: Acute renal failure type: unspecified Qualified Code(s): N17.9 - Acute kidney failure, unspecified (4) Hypokalemia Current Visit: Yes Status: Acute Assessment and plan: resolved.Monitoring and replacement. (5) Liver cyst Current Visit: Yes Status: Acute Assessment and plan: Ultrasound gallbladder and liver ordered while patient is staying in the hospital (6) Heart murmur Current Visit: Yes Status: Acute Assessment and plan: Incidental finding on clinical examination. Patient is asymptomatic. Needs evaluation by PCP. Echocardiogram ordered and report is still awaited. As family wanted to get tests done while in the hospital as patient does not have PCP at this time. No family history of sudden cardiac (7) Polycystic kidney disease Current Visit: Yes Status: Acute Assessment and plan: Incidental finding on CT scan. Retroperitoneal Renal ultrasound ordered by opal polisher (8) DVT prophylaxis Current Visit: Yes Status: Acute Assessment and plan: Patient is low risk and able to ambulate - Time Spent With Patient Total time spent is greater than 50% in coordination of care (as documented) at patient's floor/unit and/or counseling patient: 25 - 35 minutes - Subjective Interval history: Patient resting comfortably. at bedside. Denies flank pain but is still had hematuria. Blood pressure moderately elevated. Review the lab with normal creatinine level. Patient denies fever chills nausea vomiting headache dizziness chest pain shortness of breath, diarrhea - Constitutional Vitals: Temp Pulse Resp BP Pulse Ox 98.2 F 80 14 149/91 98 05/26/18 15:33 05/26/18 15:33 05/26/18 15:33 05/26/18 15:33 05/26/18 15:33 General appearance: Present: A&O X 3, no acute distress Exam: General appearance: No acute distress, A&O X 3 Head exam: Atraumatic Eye exam: EOMI, PERRLA ENT exam: Moist oral mucosa Neck nontender, supple Respiratory exam: Clear to auscultation bilaterally Cardiovascular exam: Regular rate and rhythm, 2/6 systolic murmur Abdominal exam: Soft, nontender, nondistended, positive bowel sounds Extremities exam: No calf tenderness, no pedal edema Present: Skin-no rash, warm, dry, intact Neurological exam: Alert, awake, oriented 3, CN II-XII intact, no focal deficits. No facial droop. Normal speech. Normal gait. Internal Medicine: Result - Labs CBC & Chem 7: 05/26/18 06:01 05/26/18 06:01 Labs: Short CBC 05/26/18 Range/Units 06:01 WBC 12.0 H (4.3-11.1) K/mcL Hgb 12.2 L (12.9-16.9) g/dL Hct 39.7 (37.5-50.1) % Plt Count 194 (140-400) K/mcL Neutrophils # 7.5 (1.6-8.9) K/mcL BMP 05/26/18 06:01 Sodium 139 Potassium 3.8 Chloride 111 H Carbon Dioxide 23 BUN 24 H Creatinine 1.27 Glucose 119 H Calcium 8.5 L - Impressions Impressions Liver Ultrasound 05/26/18 08:00 IMPRESSION: Stones are present to the gallbladder without evidence for acute cholecystitis. Mild gallbladder wall thickening, nonspecific. If there is persistent clinical concern for gallbladder pathology consider nuclear medicine study with gallbladder ejection fraction. Persistent right sided hydronephrosis as compared to prior CT exam 05/24/2018. No discrete renal stones are noted. Redemonstration of multiple benign right renal as well as liver cysts correlating with clinical history of polycystic renal and liver disease. No dedicated follow-up imaging recommended. D/ / 05/26/2018 09:01:22 Gilmer Gonzalez MD / Mary Seo Interpreting Provider: Gilmer Gonzalez MD Echocardiogram 05/26/18 08:29 Impressions: LVEF 60%. Normal left ventricular diastolic function. Normal right ventricular structure and function. No significant valvular dysfunction. No pulmonary hypertension. Left Ventricular Wall Motion: Rest Echo Findings All wall segments showed normal motion. Findings: Study Quality * Technically adequate exam. ECG Findings * Normal sinus rhythm. Left Ventricle * LVEF 60%. * Normal LV chamber size, wall thickness and function. * Normal left ventricular diastolic function. Right Ventricle * Normal right ventricular structure and function. Left Atrium * Normal left atrial size. Right Atrium * Normal right atrial size. Mitral Valve * Normal mitral valve structure. * No mitral stenosis. * No mitral regurgitation. Aortic Valve * Trileaflet aortic valve. * No aortic stenosis. * Trace aortic regurgitation. Tricuspid Valve * Tricuspid valve not well visualized. * Trace tricuspid regurgitation. * Estimated RA pressure is 3 mmHg. * Estimated RVSP is 28 mmHg. * No pulmonary hypertension. Pulmonic Valve * Pulmonic valve is not well visualized. * No pulmonic stenosis. * No pulmonic regurgitation. Pulmonary Artery * Pulmonary artery not well visualized. Aorta * Normally sized aortic root. Pericardium * There is no pericardial effusion present. Interatrial Septum * No evidence of PFO by color Doppler. IVC * Normal IVC dimensions and inspiratory collapse. - VTE Reasons for not Prescribing Prophylaxis: Treatment not Indicated - Low risk for VTE Consult Discharge Plan - Plan Referrals: Shell Jordan DO [Resident] - 05/30/18 10:00 am
[2018-05-27 09:01] LABS: Basophils % 0.5 %; Eosinophils # 1.3 K/mcL (0.0-0.6); Eosinophils % 14.7 %; Hematocrit 39.8 % (37.5-50.1); Hemoglobin 12.4 g/dL (12.9-16.9); Immature Granulocytes % 0.2 % (0-4); Lymphocytes # 3.2 K/mcL (0.6-4.6); Lymphocytes % 36.3 %; Mean Corpuscular HGB Conc 31.2 g/dL (31.6-35.5); Mean Corpuscular Hemoglobin 20.9 pg (28.0-33.3); Mean Corpuscular Volume 67.1 fL (83.0-100.0); Mean Platelet Volume 10.7 fL (9.4-12.4); Monocytes # 0.8 K/mcL (0.0-1.3); Monocytes % 8.8 %; Neutrophils # 3.4 K/mcL (1.6-8.9); Platelet Count 171 K/mcL (140-400); Red Blood Count 5.93 M/mcL (4.19-5.50); Red Cell Distribution Width 16.3 % (11.5-14.5); Segmented Neutrophils % 39.5 %
[2018-05-27 09:20] LABS: BUN/Creatinine Ratio 18 (6-26); Blood Urea Nitrogen 21 mg/dL (6-20); Calcium 8.5 mg/dL (8.6-10.3); Carbon Dioxide 26 mEq/L (23-29); Chloride 109 mEq/L (98-107); Glucose 103 mg/dL (70-105); Osmolality,Calculated 291 (280-300); Sodium 139 mEq/L (136-145); eGFR For African Americans > 60 (> 60); eGFR For Non-African Americans > 60 (> 60)
[2018-05-27] MEDS: amLODIPine 5 MG TABLET PO SCH (09:31)
[2018-05-27 09:42] LABS: Microcytosis Present (Not Present); Platelet Estimate Normal (Normal)
[2018-05-27] MEDS: *HR* OxyCODONE/APAP 5/325 TABLET PO PRN (12:53)
[2018-05-27] MEDS ORDERED: cloNIDine HCl 0.1 MG TABLET PO PRN (14:03)
[2018-05-27 16:35] VITALS: BP 132/78
--- NOTE | 2018-05-27 16:40 | Discharge Summary ---
- NOTES TO OUTPATIENT PROVIDER Notes to Outpatient Provider: Follow-up with PCP-keep appointment this Saturday patient already has appointment. Close monitoring of blood pressure and making further adjustment in medication. Follow-up with print production associate in 8 weeks- polycystic kidney disease. Follow with urologists within 1 week or early if persistent or worsening hematuria Orders not resulted at time of discharge: Pending orders 05/25/18 10:14 Calculi (stone) Analysis Routine Date of Encounter: 05/27/18 Time of Encounter: 16:38 - Discharge Diagnosis (1) Calculus of kidney Priority: Primary Status: Acute Assessment and Plan: Status post cystoscopic ureteroscopic stone removal and right stent placement. Advised to remove his stent in 3 days that will be tomorrow. Patient was informed to expect hematuria for a few days but if worsening or persistent than he needs to call urologists office. In the ER, CT of the abdomen/pelvis was done which showed 2 small stones in the distal right ureter at the right UVJ with severe right-sided hydronephrosis. (2) HTN (hypertension) Priority: Primary Status: Acute Assessment and Plan: Newly diagnosed hypertension. Paint Roller Winder was consulted due to the concern of newly diagnosed hypertension with newly diagnosed polycystic kidney disease with recent HATTIE though explanable obstructive uropathy. Amlodipine titrated up but is still high blood pressure therefore clonidine when necessary is started if systolic blood pressure more than 160 diastolic more than 100. Blood pressure responded to the treatment therefore will discharge patient on same medicine. Patient needs to follow with PCP for close monitoring of blood pressure and further change in medication. Lisinopril and HCTZ avoided because of recent HATTIE. Qualifiers: Hypertension type: essential hypertension Qualified Code(s): I10 - Essential (primary) hypertension (3) Acute renal failure (ARF) Priority: Primary Status: Acute Assessment and Plan: Normal creatinine level. Most likely secondary to obstructive uropathy. Qualifiers: Acute renal failure type: unspecified Qualified Code(s): N17.9 - Acute kidney failure, unspecified (4) Hypokalemia Priority: Secondary Status: Acute Assessment and Plan: Resolved. (5) Heart murmur Priority: Secondary Status: Acute Assessment and Plan: Incidental finding on clinical examination. Echocardiogram with no acute finding preserved LV function. (6) Liver cyst Priority: Secondary Status: Acute Assessment and Plan: Ultrasound liver with multiple benign liver cyst but needs to have close monitoring by PCP (7) Polycystic kidney disease Priority: Secondary Status: Acute Assessment and Plan: Incidental finding on CT scan. Retroperitoneal Renal ultrasound ordered by print production associate, review of the report. Discuss with print production associate about discharge plan who is okay to discharge with follow-up in 8-10 weeks on OPD basis. Hospital course: Mr. Dean is a 47 year old male patient got admitted for obstructive uropathy secondary to ureteral stone, newly diagnosed hypertension, new diagnosis polycystic kidney disease, newly diagnosed liver cyst. Patient underwent procedure by urologist and creatinine number came down to normal. Please see details in diagnosis part of the discharge summary Discharge discussed with: patient, family, nurse, securities consultant - Time Spent with Patient Total time spent providing and/or coordinating discharge services: - Discharge Medications Home Medications: No Known Home Drugs 05/24/18 [History] Allergies/Adverse Reactions: 3 Allergy/AdvReac Type Severity Reaction Status Date / Time No Known Allergies Allergy Verified 05/24/18 13:31 Date of admission: 05/24/18 14:10 Primary care physician: PCP NONE Consults: 05/24/18 15:39 Consult to Nutrition [CONS] Routine Comment: Pt reports he has not been eating like he did Consulting Provider: NUTRITION Reason for Dietary Consult: MST Score 05/26/18 08:26 Consult to Nephrology [CONS] Routine Consulting Provider: Kidney Elsy/LEIA/RADHA/MARLENE Reason for Consult: Newly diagnosed hypertension and ECG Call Completed: Yes - Constitutional Vitals: Temp Pulse Resp BP Pulse Ox 98.1 F 81 16 132/78 98 05/27/18 14:26 05/27/18 14:26 05/27/18 14:26 05/27/18 16:34 05/27/18 14:26 General appearance: Present: A&O X 3, no acute distress Exam: General appearance: No acute distress, A&O X 3 Head exam: Atraumatic Eye exam: EOMI, PERRLA ENT exam: Moist oral mucosa Neck nontender, supple Respiratory exam: Clear to auscultation bilaterally Cardiovascular exam: Regular rate and rhythm, 2/6 systolic murmur Abdominal exam: Soft, nontender, nondistended, positive bowel sounds Extremities exam: No calf tenderness, no pedal edema Present: Skin-no rash, warm, dry, intact Neurological exam: Alert, awake, oriented 3, CN II-XII intact, no focal deficits. No facial droop. Normal speech. Normal gait. - Patient Status Disposition: Home, Self-Care Condition: Good Overall status at discharge: patient is back to baseline - Discharge Instructions Follow Up With: Shell Jordan DO [Resident] - 05/30/18 10:00 am - Diet and Activity Activity: increase activity as tolerated Diet: low fat, low cholesterol, low salt diet - VTE Reasons for not Prescribing Prophylaxis: Treatment not Indicated - Low risk for VTE
== END 2018-05-27 17:47 | disposition home or self-care (01) ==
LOC: 3ANU 11:20 → EMEROO 11:20 → 3ANU 14:53
PROVIDERS: ADMIT Hospitalist; ATTEND Hospitalist

== ENCOUNTER 2018-10-08 12:56 | Observation (INO) ==
--- NOTE | 2018-10-08 13:07 | Emergency Department Note ---
Disposition Clinical Impression: Palpitations, EKG abnormality Chest pain Qualifiers: Chest pain type: unspecified Qualified Code(s): R07.9 - Chest pain, unspecified Disposition: Admitted As Inpatient Condition: Good Forms: ED Satisfaction Letter Time of Disposition: 15:36 General Adult HPI - General Chief complaint: ED Arrhythmia/Palpitations Stated complaint: HHR/CP Time Seen by Provider: 10/08/18 13:06 Nursing Notes Reviewed: Yes Vital Signs Reviewed: Yes - History of Present Illness HPI Narrative: -[place] male presenting to emergency department complaining of several episodes of feeling his heart is racing today. He also had 2 episodes of chest pain. States that there have been no provoking factors for the tachycardia or the chest pain. No history of any kind of heart was before does have history of hypertension is unaware of the medication that he is taking for his blood pressure however he states he did take it today. Does have a history of renal stones but denies any urinary complaints at this time. States that so they foun d out that he had high blood pressure. Patient has no cardiac history. States that the pain started as it pressure sensation on the left side of his chest and went away. However it came back and was a shooting pain from his neck into his chest. He now complains of left-sided neck pain as well as the inferior headache. He denies any visual disturbances. Denies any syncope. Denies any trauma. He is nonsmoker. He denies any caffeine use at all and denies any sedative drug use inclusive of amphetamines or decongestants. He states that he has had a feeling like his heart was racing previously however it was fleeting and only a couple times before. This is the most that is never happened in a row. He states this happened at least 7-8 times this morning. Pain Scale: 0 - Related Data Previous Rx's Medication Instructions Recorded amLODIPine [Norvasc] 10 mg PO DAILY #30 tablet 05/27/18 cloNIDine HCl [CloNIDine HCl] 0.1 mg PO BID PRN #30 tablet 05/27/18 Allergies Allergy/AdvReac Type Severity Reaction Status Date / Time No Known Allergies Allergy Verified 05/24/18 13:31 All systems ED: reviewed and negative except as stated. Review of Systems: As Per HPI Constitutional: Denies: fever, chills Eyes: Denies: eye pain, vision change ENT ED: Denies: congestion Cardiovascular: Reports: chest pain, palpitations. Denies: syncope Respiratory: Denies: cough, dyspnea Gastrointestinal: Denies: abdominal pain, nausea, vomiting, diarrhea Genitourinary: Denies: urgency, dysuria, frequency Musculoskeletal: Reports: neck pain (Left posterior). Denies: back pain Neurological: Reports: headache (Left posterior). Denies: weakness Past Medical History - Past Medical History Attestation: Yes The following information was validated with the patient. Source: patient Medical history: Reports: other (Hypertension, kidney stones) Surgical history: Reports: no surgical history Psychiatric history: Reports: no psych history - Social History Smoking Status: Never smoker Smokeless Tobacco Status: No Alcohol use: Reports: none Drug use: Reports: none Physical Exam - General Limitations: no limitations General appearance: alert, in no apparent distress - Head Head exam: atraumatic, normocephalic, normal inspection - Eye Eye exam: Present: normal appearance, PERRL, EOMI - ENT ENT exam: normal exam, normal oropharynx, mucous membranes moist - Neck Neck exam: Present: normal inspection, full ROM, trachea midline - Chest Chest inspection: Present: normal inspection, symmetric chest wall rise - Respiratory Respiratory exam: Present: normal lung sounds bilaterally. Absent: respiratory distress, accessory muscle use - Cardiovascular Cardiovascular exam: Present: regular rate, normal rhythm, normal heart sounds - Abdominal Exam Abdominal exam: Present: soft, Non-Tender. Absent: tenderness, distention, guarding, rebound, rigidity, organomegaly, Valdovinos's sign, Rovsing's sign, tenderness at McBurney's Point - Extremities Exam Extremities exam: Present: normal inspection, full ROM, normal capillary refill. Absent: tenderness, pedal edema - Back Exam Back exam: Present: normal inspection, full ROM. Absent: tenderness - Neurological Exam Neurological exam: Present: alert, oriented X3 - Psychiatric Psychiatric exam: Present: normal affect, normal mood - Skin Skin exam: Present: warm, dry, intact, normal color Course Course Narrative: No patient resting comfortably in bed. States that he still has the headache but states the chest pain has relieved. He does not have a cardiac history. EKG is concerning with his T-wave inversions he did have some previously however there are new lesions that he has T-wave inversions. With the onset of chest pain and palpitations we will do a cardiac workup on patient and likely admitted to the hospital. He is agreeable with this plan. - Reevaluation(s) Reevaluation #1: Patient is mentating appropriately while here. He has not had any episodes of chest pain while here. We will admit patient to the hospital for new EKG changes and intermittent chest pain. Time: 15:35 - Consultations Consultation #1: Dr Criag accepted Pt in stable condition. Time: 15:35 Vital Signs Temperature 98.2 F 10/08/18 12:58 Pulse Rate 84 10/08/18 12:58 Respiratory Rate 19 10/08/18 12:58 Blood Pressure 205/110 10/08/18 12:58 O2 Sat by Pulse Oximetry 99 10/08/18 12:58 Temperature 98.2 F 10/08/18 13:09 Pulse Rate 77 10/08/18 14:36 Respiratory Rate 19 10/08/18 13:09 Blood Pressure 184/106 10/08/18 14:36 O2 Sat by Pulse Oximetry 100 10/08/18 14:36 Oxygen Delivery Oxygen Delivery Room Air Medical Decision Making - Medical Records Medical records reviewed: Yes I reviewed the patient's medical records. - Lab Data Lab results reviewed: Yes I reviewed the patient's lab results. Result diagrams: 10/08/18 14:13 10/08/18 14:13 Lab Results 10/08/18 10/08/18 Range/Units 14:13 14:13 WBC 6.3 (4.3-11.1) K/mcL RBC 5.81 H (4.19-5.50) M/mcL Hgb 12.1 L (12.9-16.9) g/dL Hct 39.1 (37.5-50.1) % MCV 67.3 L (83.0-100.0) fL MCH 20.8 L (28.0-33.3) pg MCHC 30.9 L (31.6-35.5) g/dL RDW 17.6 H (11.5-14.5) % Plt Count 207 (140-400) K/mcL MPV 11.1 (9.4-12.4) fL Sodium 139 (136-145) mEq/L Potassium 3.5 (3.5-5.1) mEq/L Chloride 106 (98-107) mEq/L Carbon Dioxide 26 (23-29) mEq/L BUN 18 (6-20) mg/dL Creatinine 1.16 (0.70-1.30) mg/dL Est GFR ( Amer) > 60 (> 60) Est GFR (Non-Af Amer) > 60 (> 60) BUN/Creatinine Ratio 16 (6-26) Glucose 99 (70-105) mg/dL Calculated Osmolality 290 (280-300) Calcium 9.0 (8.6-10.3) mg/dL Troponin I < 0.03 (< 0.04) ng/mL TSH 1.022 (0.340-5.600) mcIU/mL - Radiology Data Radiology results reviewed: Yes I reviewed the patient's radiology results. Chest X-Ray 10/08/18 13:02 IMPRESSION: No acute process. D/ / Afshin Souza MD / Afshin Souza MD Interpreting Provider: Afshin Souza MD - EKG Data EKG #1 EKG attestation: Yes I reviewed and interpreted this EKG. EKG results narrative: Sinus rhythm at a rate of 85. OH interval is 148. QRS duration is 73. QT is 350. QTC is 392. No signs of acute ischemia however the patient does have new T-wave inversion in leads 2 V5 and V6. No other significant change from pre vious EKG dated 05/24/2018.
--- NOTE | 2018-10-08 13:28 | Emergency Department Note ---
Disposition Clinical Impression: Palpitations, Chest pain, EKG abnormality Disposition: Admitted As Inpatient Condition: Good General Adult HPI - General Chief complaint: ED Arrhythmia/Palpitations Stated complaint: HHR/CP Time Seen by Provider: 10/08/18 13:06 Source: patient Limitations: no limitations - History of Present Illness Pain Scale: 0 - Related Data Home Medications Medication Instructions Recorded Confirmed Diltiazem HCl [Diltiazem 12Hr ER] 120 mg PO BID 10/08/18 10/08/18 Allergies Allergy/AdvReac Type Severity Reaction Status Date / Time No Known Allergies Allergy Verified 05/24/18 13:31 Past Medical History - Past Medical History Medical history: Reports: no medical history Surgical history: Reports: no surgical history Psychiatric history: Reports: no psych history - Social History Smoking Status: Never smoker Smokeless Tobacco Status: No Alcohol use: Reports: none Drug use: Reports: none Physical Exam - General Limitations: no limitations General appearance: alert, in no apparent distress Course Vital Signs Temperature 98.2 F 10/08/18 12:58 Pulse Rate 84 10/08/18 12:58 Respiratory Rate 19 10/08/18 12:58 Blood Pressure 205/110 10/08/18 12:58 O2 Sat by Pulse Oximetry 99 10/08/18 12:58 Temperature 98.6 F 10/08/18 19:21 Pulse Rate 61 10/08/18 19:21 Respiratory Rate 16 10/08/18 19:21 Blood Pressure 135/78 10/08/18 20:55 O2 Sat by Pulse Oximetry 95 10/08/18 19:21 Oxygen Delivery Oxygen Delivery Room Air Medical Decision Making - Lab Data Result diagrams: 10/08/18 14:13 10/08/18 14:13 Lab Results 10/08/18 10/08/18 Range/Units 14:13 14:13 WBC 6.3 (4.3-11.1) K/mcL RBC 5.81 H (4.19-5.50) M/mcL Hgb 12.1 L (12.9-16.9) g/dL Hct 39.1 (37.5-50.1) % MCV 67.3 L (83.0-100.0) fL MCH 20.8 L (28.0-33.3) pg MCHC 30.9 L (31.6-35.5) g/dL RDW 17.6 H (11.5-14.5) % Plt Count 207 (140-400) K/mcL MPV 11.1 (9.4-12.4) fL Immature Gran % 0.2 (0-4) % Seg Neutrophils % 49.1 % Lymphocytes % 28.4 % Monocytes % 10.6 % Eosinophils % 11.2 % Basophils % 0.5 % Neutrophils # 3.1 (1.6-8.9) K/mcL Lymphocytes # 1.8 (0.6-4.6) K/mcL Monocytes # 0.7 (0.0-1.3) K/mcL Eosinophils # 0.7 H (0.0-0.6) K/mcL Basophils # 0.0 (0.0-0.2) K/mcL Platelet Estimate Normal (Normal) Anisocytosis 1+ A (Not Present) Microcytosis Present A (Not Present) Sodium 139 (136-145) mEq/L Potassium 3.5 (3.5-5.1) mEq/L Chloride 106 (98-107) mEq/L Carbon Dioxide 26 (23-29) mEq/L BUN 18 (6-20) mg/dL Creatinine 1.16 (0.70-1.30) mg/dL Est GFR ( Amer) > 60 (> 60) Est GFR (Non-Af Amer) > 60 (> 60) BUN/Creatinine Ratio 16 (6-26) Glucose 99 (70-105) mg/dL Calculated Osmolality 290 (280-300) Calcium 9.0 (8.6-10.3) mg/dL Troponin I < 0.03 (< 0.04) ng/mL TSH 1.022 (0.340-5.600) mcIU/mL Attestation Statement - Attestation Attestation: Resident Attestation: I examined this patient and my medical decision making was reviewed with the Resident Physician. I agree with the documented findings, disposition and treatment plan as described except to the extent set forth below. We independently had [id number] contact with the patient. Resident Physician Dr. Acuna. Patient presents today for evaluation of palpitations, chest pain. Started prior to arrival while he was driving. Patient does not have any previous heart history. He describes as dull ache in the center of his chest. Nothing makes it better or worse. Patient has the pain radiates into the left side of his neck with radiation to the left arm as well. Not worse with inspiration. Not worse with exertion. No associated nausea or diaphoresis. Denies recreational drug use. Patient despite his young age undergo further evaluation as he does have EKG changes through the inferior lateral leads with no prior cardiac workup. No acute distress, conversational, regular rhythm, clear to auscultation bilaterally, no significant peripheral edema.
[2018-10-08] MEDS ORDERED: Aspirin 325 MG TABLET PO ONE (14:02)
[2018-10-08 14:45] LABS: Basophils % 0.5 %; Eosinophils # 0.7 K/mcL (0.0-0.6); Eosinophils % 11.2 %; Hematocrit 39.1 % (37.5-50.1); Hemoglobin 12.1 g/dL (12.9-16.9); Immature Granulocytes % 0.2 % (0-4); Lymphocytes # 1.8 K/mcL (0.6-4.6); Lymphocytes % 28.4 %; Mean Corpuscular HGB Conc 30.9 g/dL (31.6-35.5); Mean Corpuscular Hemoglobin 20.8 pg (28.0-33.3); Mean Corpuscular Volume 67.3 fL (83.0-100.0); Mean Platelet Volume 11.1 fL (9.4-12.4); Monocytes # 0.7 K/mcL (0.0-1.3); Monocytes % 10.6 %; Neutrophils # 3.1 K/mcL (1.6-8.9); Platelet Count 207 K/mcL (140-400); Red Blood Count 5.81 M/mcL (4.19-5.50); Red Cell Distribution Width 17.6 % (11.5-14.5); Segmented Neutrophils % 49.1 %
[2018-10-08 14:50] LABS: Troponin I < 0.03 ng/mL (< 0.04)
[2018-10-08 14:55] LABS: BUN/Creatinine Ratio 16 (6-26); Blood Urea Nitrogen 18 mg/dL (6-20); Carbon Dioxide 26 mEq/L (23-29); Chloride 106 mEq/L (98-107); Glucose 99 mg/dL (70-105); Osmolality,Calculated 290 (280-300); Potassium 3.5 mEq/L (3.5-5.1); Sodium 139 mEq/L (136-145); eGFR For Non-African Americans > 60 (> 60)
[2018-10-08 15:03] LABS: Thyroid Stimulating Hormone 1.022 mcIU/mL (0.340-5.600)
[2018-10-08] MEDS ORDERED: Naloxone 0.4 MG/ML INJ IVP PRN (15:47)
[2018-10-08] MEDS ORDERED: Nitroglycerin 0.4 MG TAB.SUBL SL PRN (15:55)
--- NOTE | 2018-10-08 16:02 | Internal Med History&Physical ---
Date of Encounter: 10/08/18 Time of Encounter: 16:00 Internal Medicine - H&P: HPI Chief complaint: chest pain Admitted From: Home Plans for Post Hospital Care: Home History of present illness: Mr. Dean is a 48 year old male who was recently diagnosed with high blood pressure presented to the emergency department with complaint of chest pain. As per patient he was driving back from [place] and developed a sudden onset of left-sided chest pain that radiated to his left neck, crampy in nature 2 out of 10 and lasted about 5 minutes. He again experienced similar chest pain about 30 minutes later with similar characteristics so he decided to drive himself to [facility] for further evaluation. He has never had symptoms like this before, no cardiac history, reports compliance with his blood pressure medications however he cannot recall the name but does report that he took his dose this morning. His chest pain is also associated with palpitations, heat during denies caffeine use, nonsmoker, denies illicit drug use. He does report that he has had history of palpitations before however they resolved and he has only had a few episodes his whole life by today he experienced 2 episodes of palpitations along with the chest pain [id number] so he decided to come to the emergency department as it was unusual for him. He denies fever, chills, shortness of breath, headache, vision changes, headache nausea, vomiting, diarrhea, leg swelling, PND, orthopnea, calf tenderness. He is pretty active can walk many blocks without having to stop for chest pain or shortness of breath. While in the emergency department he was found to have negative troponins with elevated blood pressure 205/110. EKG showed new T-wave inversions in [address] changes in the anterolateral leads which were similar to his EKG on 05/24. He was endorsed for further evaluation of his chest pain. Past Med Surg Social Fam HX - Past Medical History Medical history: other (Hypertension, kidney stones) Psychiatric history: no psych history - Past Surgical History Surgical History: no surgical history - Social History Smoking Status: Never smoker Smokeless Tobacco Status: No Alcohol use: none Drug use: none - Family History Mother Living Status: Father Living Status: Internal Medicine - H&P: Meds amLODIPine [Norvasc] 10 mg PO DAILY #30 tablet 05/27/18 [Rx] cloNIDine HCl [CloNIDine HCl] 0.1 mg PO BID PRN #30 tablet 05/27/18 [Rx] Allergy/AdvReac Type Severity Reaction Status Date / Time No Known Allergies Allergy Verified 05/24/18 13:31 All Systems PM: A 10-system review of systems was performed and is negative for pertinent findings except as documented above in the HPI. - Constitutional Vitals: Temp Pulse Resp BP Pulse Ox 98.2 F 62 18 177/112 99 10/08/18 13:09 10/08/18 15:47 10/08/18 15:47 10/08/18 15:47 10/08/18 15:47 Exam: General: Patient is alert, oriented, no acute distress, muscular build Head: atraumatic, normocephalic, Eye: normal appearance, PERRL, no scleral icterus, no conjunctival injection ENT: mucous membranes moist, normal external ear exam Neck: normal inspection, trachea midline, full ROM, no carotid bruits Chest: normal inspection, symmetric chest rise Respiratory: Good respiratory effort. Bilateral breath sounds are clear without wheezing, crackles, or rhonchi. Cardiovascular: Regular rate and rhythm. s1 and s2 No clicks, rubs, gallops, or murmors. Abdomen: Bowel sounds present normoactive x-4 quadrants. Abdomen is soft, nondistended. no Epigastric tenderness. No guarding or rebound. No organomegaly noted, obese musculoskeletal: Spontaneously moving all extremities. no edema, no calf tenderness Skin: warm, dry, intact. Neuro: Alert and oriented x4. Sensation light touch intact. Cranial nerves 2- 12 is intact. Not aphasic, rapid hand movements intact, [id number] intact, Psych: Patient's affect is normal Internal Med - H&P Results - Labs CBC & Chem 7: 10/08/18 14:13 10/08/18 14:13 Labs: Short CBC 10/08/18 Range/Units 14:13 WBC 6.3 (4.3-11.1) K/mcL Hgb 12.1 L (12.9-16.9) g/dL Hct 39.1 (37.5-50.1) % Plt Count 207 (140-400) K/mcL BMP 10/08/18 14:13 Sodium 139 Potassium 3.5 Chloride 106 Carbon Dioxide 26 BUN 18 Creatinine 1.16 Glucose 99 Calcium 9.0 Cardiac Enzymes 10/08/18 Range/Units 14:13 Troponin I < 0.03 (< 0.04) ng/mL - EKG Data -: EKG Interpreted by Myself EKG shows normal: sinus rhythm (Sinus rhythm, LVH T-wave inversions in 23, ST-T changes in the anterolateral leads similar to EKG on 05/24) - EKG Data Prior EKG available for review: yes When compared to previous EKG: there are significant changes (New T-wave inversions in 2) - Impressions ITS Impressions Chest X-Ray 10/08/18 13:02 IMPRESSION: No acute process. D/ / Afshin Souza MD / Afshin Souza MD Interpreting Provider: Afshin Souza MD - Assessment and plan (1) Chest pain Current Visit: Yes Status: Acute Assessment and plan: Chest pain most likely secondary to hypertensive urgency will rule out ACS Cardiac monitoring First troponin was negative in the emergency department followed every 6 hours along with EKG Was loaded with aspirin continue with 81 mg daily Coreg 3.125 twice a daytitrate as per heart rate and BP, hold for heart rate less than 60 and SBP less than 90 Losartan 50 mg daily Lipid panel,TSH in the a.m. Nitroglycerin every 5 minutes when necessary for chest pain Nothing by mouth at midnight Stress test in a.m. Cardiology consultation Had recent echocardiogram- will defer repeating to cardiology team Echo on 05/26/18 Impressions: LVEF 60%. Normal left ventricular diastolic function. Normal right ventricular structure and function. No significant valvular dysfunction. No pulmonary hypertension. 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
[2018-10-08 16:04] LABS: Anisocytosis 1+ (Not Present); Platelet Estimate Normal (Normal)
[2018-10-08 16:05] LABS: Microcytosis Present (Not Present)
--- NOTE | 2018-10-08 16:22 | Electrocardiograph Report ---
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
[2018-10-08] MEDS: *HR* Heparin 5,000 UNIT/ML VIAL SQ SCH (21:45)
[2018-10-09 03:34] LABS: Basophils % 0.6 %; Eosinophils # 0.9 K/mcL (0.0-0.6); Eosinophils % 17.5 %; Hematocrit 38.6 % (37.5-50.1); Hemoglobin 11.9 g/dL (12.9-16.9); Immature Granulocytes % 0.2 % (0-4); Lymphocytes # 1.7 K/mcL (0.6-4.6); Lymphocytes % 34.4 %; Mean Corpuscular HGB Conc 30.8 g/dL (31.6-35.5); Mean Corpuscular Hemoglobin 20.8 pg (28.0-33.3); Mean Corpuscular Volume 67.4 fL (83.0-100.0); Mean Platelet Volume 11.3 fL (9.4-12.4); Monocytes # 0.5 K/mcL (0.0-1.3); Monocytes % 9.1 %; Neutrophils # 1.9 K/mcL (1.6-8.9); Platelet Count 204 K/mcL (140-400); Red Blood Count 5.73 M/mcL (4.19-5.50); Red Cell Distribution Width 17.5 % (11.5-14.5); Segmented Neutrophils % 38.2 %
[2018-10-09 03:40] LABS: INR 0.9; Prothrombin Time 10.4 Seconds (9.4-12.1)
[2018-10-09 03:43] LABS: Activated Partial Thrombo Time 34.7 Seconds (26.0-36.0)
[2018-10-09 03:49] LABS: Chol/HDL Ratio 5.2 (0-4.9); Magnesium 2.2 mg/dL (1.6-2.6); Phosphorous 4.8 mg/dL (2.7-4.5)
[2018-10-09 03:59] LABS: Microcytosis Present (Not Present); Platelet Estimate Normal (Normal)
[2018-10-09] MEDS ORDERED: Regadenoson 0.4 MG/5 ML SYRINGE IVP ONE (05:30)
[2018-10-09] MEDS: *HR* Heparin 5,000 UNIT/ML VIAL SQ SCH (05:38)
[2018-10-09] MEDS ORDERED: Aspirin 81 MG TAB.CHEW PO SCH (09:00)
[2018-10-09 10:44] VITALS: BP 154/88
--- NOTE | 2018-10-09 11:44 | Discharge Summary ---
- NOTES TO OUTPATIENT PROVIDER Notes to Outpatient Provider: f/u with PCP in one week. Please continue taking cholesterol and BP meds Orders not resulted at time of discharge: Pending orders 10/09/18 05:38 NM hector perf SPECT multi [NM] Routine Date of Encounter: 10/09/18 Time of Encounter: 11:41 - Discharge Diagnosis (1) Chest pain Priority: Primary Status: Acute Qualifiers: Chest pain type: unspecified Qualified Code(s): R07.9 - Chest pain, unspecified (2) Hypertensive urgency Priority: Primary Status: Acute (3) DVT prophylaxis Priority: Secondary Status: Acute Hospital course: Mr. Dean is a 48 year old male who was recently diagnosed with high blood pressure presented to the emergency department with complaint of chest pain. As per patient he was driving back from [place] and developed a sudden onset of left-sided chest pain that radiated to his left neck, crampy in nature 2 out of 10 and lasted about 5 minutes. Patient was admitted in the hospital and placed him on night monitor. His EKG did show nonspecific changes. His his serial troponin X3 came back is negative. He denied anymore chest pain. Patient is high risk for ACS so he did have nuclear stress test which came back as negative for any ischemia. Due to his uncontrolled blood pressure patient was started on Losartan and beta osmin. His cholesterol the significantly elevated with LDL in 138. I counseled the patient about diet modifications and lifestyle changes. Also started him on Lipitor 40 mg at bedtime - Time Spent with Patient Total time spent providing and/or coordinating discharge services: - Discharge Medications Prescriptions: Aspirin 81 mg PO DAILY #30 tab.chew Atorvastatin [Lipitor] 40 mg PO HS #30 tablet Losartan [Cozaar] 50 mg PO DAILY #30 tablet Metoprolol [Lopressor] 25 mg PO BID #60 tablet Home Medications: Aspirin 81 mg PO DAILY #30 tab.chew 10/09/18 [Rx] Atorvastatin [Lipitor] 40 mg PO HS #30 tablet 10/09/18 [Rx] Losartan [Cozaar] 50 mg PO DAILY #30 tablet 10/09/18 [Rx] Metoprolol [Lopressor] 25 mg PO BID #60 tablet 10/09/18 [Rx] Allergies/Adverse Reactions: Allergy/AdvReac Type Severity Reaction Status Date / Time No Known Allergies Allergy Verified 05/24/18 13:31 Date of admission: 10/08/18 15:56 Primary care physician: Shell Jordan DO - Constitutional Vitals: Temp Pulse Resp BP Pulse Ox 97.5 F L 65 18 154/88 98 10/09/18 10:43 10/09/18 10:43 10/09/18 10:43 10/09/18 10:43 10/09/18 10:43 General appearance: Present: A&O X 3 Exam: Gen: Alert, awake, Oriented to time,place and person Chest: Diminished breath sounds B/L, No wheezing, No crackles, No rales Heart: S1S2+ RRR No murmurs Abd: Soft, NT, BS +, No organomegaly Ext: No edema, pulses are palpable, No calf tenderness Neuro : Benign findings Skin: No rash. - Patient Status Disposition: Home, Self-Care Condition: Good Overall status at discharge: patient is back to baseline - Discharge Instructions Follow Up With: Shell Jordan DO [Primary Care Provider] - 10/14/18 10:20 am - Diet and Activity Activity: increase activity as tolerated Diet: low salt diet
[2018-10-09] MEDS ORDERED: amLODIPine 5 MG TABLET PO ONE (15:59)
== END 2018-10-09 13:16 | disposition home or self-care (01) ==
LOC: EMEROOARM 12:56 → 3BNU 12:56
PROVIDERS: ADMIT Internal Medicine; ATTEND Internal Medicine